=== PATIENT | male | born 1940 | race African-American/Black ===

== ENCOUNTER 2023-06-09 11:39 | Emergency (ER) | payer MEDICARE, OTHER ==
[~2023-06-09] VITALS: Ht 182.9 cm; Wt 80.0 kg
[~2023-06-09 11:39] MED LIST: AMLO10TA80 PO; CLOP75TA33 PO; LISI-186 PO
[2023-06-09 12:14] VITALS: O2SAT 92
[2023-06-09] MEDS ORDERED: SODIUM CHLORIDE 0.9% 1,000 ML IV ONE (12:45)
[2023-06-09 15:09] LABS: BASOPHILS % 0.8 % (0.0-2.0); HEMATOCRIT. 40.8 % (42.0-52.0); HEMOGLOBIN. 13.7 g/dL (14.0-18.0); LYMPHOCYTES % 29.4 % (20.0-50.0); MEAN CORPUSCULAR HEMOGLOBIN 32.5 pg (28.0-32.0); MEAN CORPUSCULAR HGB CONC 33.6 g/dL (31.0-37.0); MEAN CORPUSCULAR VOLUME 96.6 fL (80.0-94.0); MEAN PLATELET VOLUME 8.5 fl (7.4-10.4); MONOCYTES % 9.8 % (2.0-8.0); PLATELET 231 x1000/uL (130-400); RED BLOOD CELL COUNT 4.23 mill/uL (4.7-6.1); RED CELL DISTRIBUTION WIDTH 13.1 % (11.6-14.6); WHITE BLOOD COUNT 4.9 x1000/uL (4.5-11.0)
[2023-06-09 15:24] LABS: ALANINE AMINOTRANSFERASE 22 IU/L (10-49); ALBUMIN 3.7 g/dL (3.2-4.8); ASPARTATE AMINOTRANSFERASE 28 IU/L (<34); CALCIUM 8.7 mg/dL (8.7-10.4); CARBON DIOXIDE 29 mEq/L (21-32); CHLORIDE 104 mEq/L (98-107); GLUCOSE 105 mg/dL (70-105); POTASSIUM 3.6 mEq/L (3.5-5.1); PROTEIN TOTAL 6.7 g/dL (6.0-8.3); SODIUM 139 mEq/L (136-145); TROPONIN I HIGH SENSITIVITY 8 ng/L (3.0-53); UREA NITROGEN BLOOD 8 mg/dL (9-23)
[2023-06-09 16:11] VITALS: BP 143/79; PULSE 76; RESP 18; TEMP 98.3
== END 2023-06-09 16:34 | disposition home or self-care (01) ==
LOC: ER 11:39
DX: M17.10 Unilateral primary osteoarthritis, unspecified knee (principal); Z86.73 Personal history of transient ischemic attack (TIA), and cerebral infarction without residual deficits; W18.39XA Other fall on same level, initial encounter; Y93.89 Activity, other specified; Y92.89 Other specified places as the place of occurrence of the external cause; Y99.8 Other external cause status
CPT/HCPCS: 99285; 96360; 71045; 80053; 85025; 84484; 36415; 93005; J7030